=== PATIENT | male | born 1970 | race African-American/Black ===

== ENCOUNTER 2019-04-06 15:24 | Inpatient (IN) ==
[2019-04-06 18:43] LABS: Basophils # 0.1 10*3/uL (0.0-0.2); Basophils % 0.8 % (0.0-0.8); Eosinophils % 0.5 % (0.00-10.9); Hematocrit 49.5 VOL% (42.0-52.0); Hemoglobin 17.2 GM/DL (14.0-18.0); Immature Granulocytes % 0.6 %; Immature Granulocytes Absolute 0.04 #; Lymphocytes # 1.3 10*3/uL (1.4-4.0); Lymphocytes % 19.9 % (21.2-54.2); Mean Corpuscular HGB Conc 34.7 GM/DL (32-36); Mean Corpuscular Volume 81.1 FL (87-102); Monocytes % 4.6 % (1.7-12.7); Neutrophils % 73.6 % (38.7-73.9); Platelet Count 312 T/CUMM (130-400); Red Cell Distribution Width 13.5 % (9.3-17.3); White Blood Count 6.6 T/CUMM (4-12)
[2019-04-06 19:02] LABS: Albumin 4.3 G/DL (3.4-5.0); Bilirubin,Total 0.7 MG/DL (0.2-1.0); Calcium 10.1 MG/DL (8.5-10.1); Osmolality,Calculated 290.1 MOS/KG (273-304); Total Protein 8.4 G/DL (6.4-8.3)
[2019-04-06] MEDS ORDERED: ONDANSETRON 4 MG/2 ML VIAL IV ONE (19:26)
[2019-04-06] MEDS ORDERED: SODIUM CHLORIDE 0.9% 2,000 ML IV STA (19:26)
[2019-04-06 19:58] LABS: INR 0.9
[2019-04-06] MEDS ORDERED: INSULIN REGULAR DRIP 100 ML IV PRN (20:33)
[2019-04-06 20:46] LABS: ABG HCO3 16.7 MMOL/L (20-26); ABG Oxygen Saturation 97.3 % (95-100); ABG PCO2 26.2 MM HG (35-48); ABG PH 7.343 (7.35-7.45); ABG PO2 92.7 MM HG (80-95); ABG TCO2 12.2 MMOL/L (23-27)
[2019-04-06] MEDS ORDERED: SODIUM BICARB INJ 100 MEQ in STERILE WATER INJ 400 ML IV PRN (20:46)
[2019-04-06] MEDS ORDERED: DEXTROSE 10% 250 ML BAG IV PRN ×2 (20:46)
[2019-04-06] MEDS ORDERED: SODIUM CHLORIDE 0.9% 1,000 ML IV ONE (20:46)
[2019-04-06] MEDS ORDERED: MAGNESIUM SULF RIDER 4 GM in PREMIX 1 EACH IV PRN (20:46)
[2019-04-06] MEDS ORDERED: INSULIN REGULAR 100 UNIT/ML IV ONE (20:46)
[2019-04-06] MEDS ORDERED: MAGNESIUM SULF RIDER 2 GM in PREMIX 1 EACH IV PRN (20:46)
[2019-04-06] MEDS ORDERED: SODIUM PHOSPHATE INJ 23.8 MMOL in SODIUM CHLORIDE 0.9% 250 ML IV PRN (20:46)
[2019-04-06] MEDS ORDERED: INSULIN REGULAR DRIP 100 ML IV SCH (21:00)
[2019-04-06 21:21] LABS: Troponin I < 0.015 NG/ML (0.00-0.045)
[2019-04-06 22:36] LABS: Apearance,Urine CLEAR (Clear); Bilirubin,Urine Negative (Negative); Blood, Urine Negative (Negative); Glucose,Urine (UA) >=500 mg/dL (Negative); Ketones,Urine 80 mg/dL (Negative); Mucus,Urine Occasional /LPF (Occasional); Nitrite,Urine Negative (Negative); Protein,Urine Negative; RBC,Urine 2 /HPF (0-4); Urine Color Straw (Yellow); Urine Specific Gravity 1.022 (1.001-1.035); Urine Urobilinogen < 2.0 EU/DL (0.2-1.0)
[2019-04-06] MEDS: SODIUM CHLORIDE 0.9% 1,000 ML IV SCH ×3 (23:22→23:36)
[2019-04-06 23:33] LABS: Basophils % 0.7 % (0.0-0.8); Eosinophils # 0.1 10*3/uL (0.0-0.87); Eosinophils % 0.8 % (0.00-10.9); Hematocrit 42.8 VOL% (42.0-52.0); Hemoglobin 14.7 GM/DL (14.0-18.0); Immature Granulocytes % 0.5 %; Immature Granulocytes Absolute 0.03 #; Lymphocytes # 1.8 10*3/uL (1.4-4.0); Lymphocytes % 31.1 % (21.2-54.2); Mean Corpuscular HGB Conc 34.3 GM/DL (32-36); Mean Corpuscular Volume 82.1 FL (87-102); Monocytes % 7.4 % (1.7-12.7); Neutrophils % 59.5 % (38.7-73.9); Platelet Count 246 T/CUMM (130-400); Red Blood Count 5.21 MC/CUMM (3.8-5.5); Red Cell Distribution Width 13.4 % (9.3-17.3); White Blood Count 5.9 T/CUMM (4-12)
[2019-04-06 23:50] LABS: Calcium 8.8 MG/DL (8.5-10.1); Osmolality,Calculated 297.8 MOS/KG (273-304)
[2019-04-07] MEDS: SODIUM CHLORIDE 0.9% 1,000 ML IV SCH (02:16)
[2019-04-07] MEDS: SODIUM CHLOR 0.45% KCL 20 MEQ 20 MEQ/1,000 ML BAG IV SCH ×2 (04:20→09:09)
[2019-04-07 04:59] LABS: Basophils % 0.8 % (0.0-0.8); Eosinophils # 0.1 10*3/uL (0.0-0.87); Eosinophils % 2.3 % (0.00-10.9); Hematocrit 37.4 VOL% (42.0-52.0); Immature Granulocytes % 0.4 %; Immature Granulocytes Absolute 0.02 #; Lymphocytes # 2.2 10*3/uL (1.4-4.0); Lymphocytes % 42.3 % (21.2-54.2); Mean Corpuscular HGB Conc 34.8 GM/DL (32-36); Mean Corpuscular Volume 79.7 FL (87-102); Neutrophils % 45.2 % (38.7-73.9); Platelet Count 219 T/CUMM (130-400); Red Blood Count 4.69 MC/CUMM (3.8-5.5); Red Cell Distribution Width 13.4 % (9.3-17.3); White Blood Count 5.2 T/CUMM (4-12)
[2019-04-07 05:18] LABS: Osmolality,Calculated 283.8 MOS/KG (273-304)
[2019-04-07] MEDS: POTASSIUM CHLORIDE RIDER 10 MEQ in PREMIX 1 EACH IV PRN ×4 (06:33→10:22)
[2019-04-07] MEDS ORDERED: DEXT 5% NACL 0.45% KCL 20 MEQ 20 MEQ/1,000 ML BAG IV SCH (07:30)
[2019-04-07 10:01] LABS: Calcium 7.8 MG/DL (8.5-10.1); Osmolality,Calculated 278.2 MOS/KG (273-304)
[2019-04-07] MEDS ORDERED: SODIUM CHLOR 0.9% KCL 20 MEQ 20 MEQ/1,000 ML BAG IV SCH (10:30)
[2019-04-07] MEDS ORDERED: GLUCAGON 1 MG VIAL IM PRN (10:36)
[2019-04-07] MEDS ORDERED: DEXTROSE 50% 25 GM/50 ML VIAL IV PRN (10:36)
[2019-04-07] MEDS: INSULIN LISPRO 100 UNIT/ML SUBCUT SCH ×3 (11:20→21:00)
[2019-04-07] MEDS: LISINOPRIL/HCTZ 10-12.5 MG TABLET PO SCH (11:44)
[2019-04-07] MEDS ORDERED: SODIUM CHLORIDE 0.45% 1,000 ML IV SCH (13:46)
[2019-04-07] MEDS: metFORMIN 500 MG TABLET PO SCH (17:16)
[2019-04-08 05:00] LABS: Calcium 8.5 MG/DL (8.5-10.1)
[2019-04-08] MEDS: INSULIN LISPRO 100 UNIT/ML SUBCUT SCH ×2 (08:24→11:42)
[2019-04-08] MEDS: metFORMIN 500 MG TABLET PO SCH (08:25)
[2019-04-08] MEDS: LISINOPRIL/HCTZ 10-12.5 MG TABLET PO SCH (08:25)
[2019-04-08] MEDS ORDERED: metFORMIN 500 MG TABLET PO SCH (09:27)
[2019-04-08 11:52] VITALS: BP 142/93
[2019-04-08] MEDS ORDERED: glipiZIDE 10 MG TABLET PO SCH ×2 (13:00→16:30)
[2019-04-08] MEDS ORDERED: metFORMIN 500 MG TABLET PO ONE (13:00)
== END 2019-04-08 15:13 | disposition home or self-care (01) | DRG 638 ==
LOC: N.ED 15:24 → N.EDINP 20:46 → SUATTDRO 20:46 → N.CC 21:11 → N.4E 04-07 13:11
PROVIDERS: ADMIT Internal Medicine Geriatric Medicine; ATTEND Internal Medicine

== ENCOUNTER 2022-02-02 12:28 | Observation (INO) ==
[2022-02-02] MEDS ORDERED: SODIUM CHLORIDE 0.9% 1,000 ML IV STA (13:02)
[2022-02-02 13:17] LABS: Basophils # 0.1 10*3/uL (0.0-0.2); Eosinophils % 0.5 % (0.00-10.9); Hematocrit 45.8 VOL% (42.0-52.0); Hemoglobin 15.6 GM/DL (14.0-18.0); Immature Granulocytes % 0.3 %; Immature Granulocytes Absolute 0.02 #; Lymphocytes # 1.3 10*3/uL (1.4-4.0); Lymphocytes % 20.6 % (21.2-54.2); Mean Corpuscular HGB Conc 34.1 GM/DL (32-36); Mean Corpuscular Volume 83.1 FL (87-102); Mean Platelet Volume 10.6 FL (9.6-12.0); Monocytes # 0.4 10*3/uL (0.11-0.8); Monocytes % 6.2 % (1.7-12.7); Neutrophils % 71.4 % (38.7-73.9); Platelet Count 293 T/CUMM (130-400); Red Blood Count 5.51 MC/CUMM (3.8-5.5); Red Cell Distribution Width 13.4 % (9.3-17.3); White Blood Count 6.3 T/CUMM (4-12)
[2022-02-02 13:37] LABS: Albumin 3.8 G/DL (3.4-5.0); Bilirubin,Total 0.7 MG/DL (0.20-1.00); Calcium 8.8 MG/DL (8.5-10.1); Osmolality,Calculated 300.2 MOS/KG (273-304); Potassium 4.2 MMOL/L (3.5-5.1); Total Protein 7.6 G/DL (6.4-8.2)
[2022-02-02] MEDS ORDERED: INSULIN LISPRO 100 UNIT/ML SUBCUT STA (13:58)
[2022-02-02] MEDS ORDERED: hydrALAZINE 20 MG/1 ML VIAL IV PRN (14:56)
[2022-02-02] MEDS ORDERED: DEXTROSE 10% 250 ML BAG IV PRN (14:56)
[2022-02-02] MEDS ORDERED: GLUCAGON 1 MG VIAL IM PRN (14:56)
[2022-02-02] MEDS ORDERED: DOCUSATE SODIUM 100 MG CAPSULE PO PRN (14:56)
[2022-02-02] MEDS ORDERED: ONDANSETRON 4 MG/2 ML VIAL IV PRN (14:56)
[2022-02-02] MEDS ORDERED: ENOXAPARIN 40 MG/0.4 ML SYRINGE SUBCUT SCH (15:00)
[2022-02-02] MEDS ORDERED: INSULIN NPH 100 UNIT/ML SUBCUT ONE (15:05)
[2022-02-02] MEDS: SODIUM CHLORIDE 0.45% 1,000 ML IV SCH ×2 (15:33→23:05)
[2022-02-02] MEDS: INSULIN REGULAR 100 UNIT/ML SUBCUT SCH ×2 (16:51→20:31)
[2022-02-02] MEDS ORDERED: INFLUENZA VIRUS VACCINE 0.5 ML SYRINGE IM ONE (18:02)
[2022-02-02] MEDS ORDERED: INSULIN GLARGINE 100 UNIT/ML SUBCUT SCH (21:00)
[2022-02-03 04:33] LABS: Basophils # 0.1 10*3/uL (0.0-0.2); Basophils % 1.2 % (0.0-0.8); Eosinophils # 0.1 10*3/uL (0.0-0.87); Eosinophils % 2.7 % (0.00-10.9); Hematocrit 39.9 VOL% (42.0-52.0); Hemoglobin 13.7 GM/DL (14.0-18.0); Immature Granulocytes % 0.4 %; Immature Granulocytes Absolute 0.02 #; Lymphocytes # 2.4 10*3/uL (1.4-4.0); Lymphocytes % 49.3 % (21.2-54.2); Mean Corpuscular HGB Conc 34.3 GM/DL (32-36); Mean Corpuscular Volume 81.4 FL (87-102); Mean Platelet Volume 9.9 FL (9.6-12.0); Monocytes # 0.4 10*3/uL (0.11-0.8); Monocytes % 7.5 % (1.7-12.7); Neutrophils % 38.9 % (38.7-73.9); Platelet Count 240 T/CUMM (130-400); Red Cell Distribution Width 13.3 % (9.3-17.3); White Blood Count 4.8 T/CUMM (4-12)
[2022-02-03] MEDS ORDERED: ACETAMINOPHEN 325 MG TABLET PO PRN (04:41)
[2022-02-03 05:09] LABS: Calcium 8.9 MG/DL (8.5-10.1); Osmolality,Calculated 279.3 MOS/KG (273-304); Potassium 3.3 MMOL/L (3.5-5.1); Thyroid Stimulating Hormone 1.51 uIU/ml (0.358-3.74)
[2022-02-03] MEDS: SODIUM CHLORIDE 0.45% 1,000 ML IV SCH (06:42)
[2022-02-03] MEDS: INSULIN REGULAR 100 UNIT/ML SUBCUT SCH (07:30)
[2022-02-03] MEDS ORDERED: PANTOPRAZOLE 40 MG TABLET PO SCH (09:00)
[2022-02-03] MEDS ORDERED: POTASSIUM CHLORIDE 20 MEQ TABLET PO ONE (09:05)
[2022-02-03 12:17] VITALS: BP 149/93
== END 2022-02-03 12:23 | disposition home or self-care (01) ==
LOC: N.ED 12:28 → N.EDINP 12:28 → SUATTDRO 14:51 → N.2W 17:45
PROVIDERS: ADMIT Hospitalist; ATTEND Internal Medicine